=== PATIENT | female | born 1955 | race African-American/Black ===

== ENCOUNTER 2017-04-30 23:46 | Observation (INO) | payer MEDICARE, MEDICAID ==
[~2017-04-30] VITALS: Ht 157.5 cm; Wt 104.3 kg
[~2017-04-30 23:46] MED LIST: BABY ASPIRIN; BUSP-29; DIOVAN; DOCUSATE; PRILOSEC; PROZAC; WELLBUTRIN; ZYPREXA
[2017-05-01] MEDS ORDERED: NITROGLYCERIN OINT 1GM/INCH UDPKT TD STA (00:16)
[2017-05-01 00:42] LABS: BASOPHILS % 0.6 % (0.0-2.0); EOSINOPHILS % 2.6 % (0.0-5.0); HEMATOCRIT. 29.4 % (36.0-48.0); HEMOGLOBIN. 9.7 g/dL (12.0-16.0); LYMPHOCYTES % 35.3 % (20.0-50.0); MEAN CORPUSCULAR HEMOGLOBIN 28.4 pg (28.0-32.0); MEAN CORPUSCULAR VOLUME 85.8 fL (81.0-99.0); MEAN PLATELET VOLUME 9.9 fl (7.4-10.4); MONOCYTES % 8.4 % (2.0-8.0); NEUTROPHILS % 53.1 % (40.0-76.0); PLATELET 162 x1000/uL (130-400); RED BLOOD CELL COUNT 3.43 mill/uL (4.2-5.4); RED CELL DISTRIBUTION WIDTH 15.1 % (11.6-14.6)
[2017-05-01 00:50] LABS: CARBON DIOXIDE 20 mEq/L (21-32); CHLORIDE 113 mEq/L (98-107); TROPONIN I < 0.02 ng/mL (0.00-0.04)
[2017-05-01 03:54] VITALS: BP 111/73
[2017-05-01 04:00] VITALS: BP 111/73
[2017-05-01 08:22] LABS: CREATINE KINASE 151 IU/L (26-192); TROPONIN I < 0.02 ng/mL (0.00-0.04)
[2017-05-01 08:23] LABS: CREATINE KINASE MB FRACTION 1.6 ng/mL (0.5-3.6)
[2017-05-01 08:37] VITALS: BP 125/66
[2017-05-01] MEDS ORDERED: PANTOPRAZOLE 40MG DR TABLET PO SCH (09:15)
[2017-05-01] MEDS ORDERED: ASPIRIN 325MG EC TABLET PO SCH (09:15)
[2017-05-01] MEDS ORDERED: LORAZEPAM 0.5MG TABLET PO PRN (09:15)
[2017-05-01] MEDS ORDERED: ENOXAPARIN 40MG/0.4ML SYR SUBCUT SCH (09:15)
[2017-05-01] MEDS ORDERED: LOSARTAN POTASSIUM 100 MG TABLET PO SCH (09:15)
[2017-05-01] MEDS ORDERED: ACETAMINOPHEN 325MG TABLET PO PRN (09:15)
[2017-05-01] MEDS ORDERED: DEXTROSE 50% WATER 50ML SYRINGE IV PRN (11:15)
[2017-05-01] MEDS ORDERED: BLOOD SUGAR DIAGNOSTIC STRIP TEST SCH (11:45)
[2017-05-01] MEDS ORDERED: INSULIN LISPRO 100 UNITS/ML SUBCUT SCH (12:15)
[2017-05-01 12:18] VITALS: BP 104/70
[2017-05-01 12:45] VITALS: BP 104/70
[2017-05-01] MEDS ORDERED: SODIUM CHLORIDE 0.9% INJ 3ML FLUSH IVF SCH (14:00)
[2017-05-01 14:49] LABS: CLARITY URINE CLEAR (CLEAR); COLOR URINE YELLOW (YELLOW); GLUCOSE URINE 2+ (NEGATIVE); KETONES URINE NEGATIVE (NEGATIVE); LEUKOCYTE ESTERASE URINE TRACE (NEGATIVE); NITRITE URINE NEGATIVE (NEGATIVE); OCCULT BLOOD URINE NEGATIVE (NEGATIVE); PROTEIN URINE NEGATIVE (NEGATIVE); SPECIFIC GRAVITY URINE 1.018 (1.005-1.030); UROBILINOGEN URINE 0.2 E.U./dL (0.2-1.0)
[2017-05-01 15:47] LABS: CREATINE KINASE 142 IU/L (26-192); TROPONIN I < 0.02 ng/mL (0.00-0.04)
[2017-05-01 15:48] LABS: CREATINE KINASE MB FRACTION 0.6 ng/mL (0.5-3.6)
[2017-05-01] MEDS ORDERED: ZOLPIDEM TARTRATE 5MG TABLET PO PRN (21:00)
== END 2017-05-01 15:20 | disposition home or self-care (01) ==
LOC: ER 23:46 → 5WST 05-01 00:37 → INTOOBSV 05-01 00:37 → EDBEDREQ 05-01 00:49 → ENRESERV 05-01 02:08
PROVIDERS: ADMIT Ophthalmology; ATTEND Ophthalmology
DX: R07.2 Precordial pain (principal); E11.9 Type 2 diabetes mellitus without complications; I10 Essential (primary) hypertension; F41.9 Anxiety disorder, unspecified; N17.9 Acute kidney failure, unspecified; Z98.84 Bariatric surgery status
CPT/HCPCS: 36415; 71010; 80053; 81001; 82550; 82553; 82962; 83880; 84484; 85025; 93005; 99285; G0378; J1650

== ENCOUNTER 2017-10-28 17:01 | Emergency (ER) | payer MEDICARE, MEDICAID ==
[~2017-10-28] VITALS: Ht 157.5 cm; Wt 93.0 kg
[2017-10-28] MEDS ORDERED: SODIUM CHLORIDE 0.9% 1,000 ML IV ONE (22:25)
[2017-10-28 22:56] LABS: BASOPHILS % 0.5 % (0.0-2.0); EOSINOPHILS % 2.8 % (0.0-5.0); HEMATOCRIT. 29.6 % (36.0-48.0); HEMOGLOBIN. 9.7 g/dL (12.0-16.0); LYMPHOCYTES % 31.5 % (20.0-50.0); MEAN CORPUSCULAR HEMOGLOBIN 27.9 pg (28.0-32.0); MEAN CORPUSCULAR VOLUME 85.5 fL (81.0-99.0); MEAN PLATELET VOLUME 9.8 fl (7.4-10.4); MONOCYTES % 7.2 % (2.0-8.0); PLATELET 207 x1000/uL (130-400); RED BLOOD CELL COUNT 3.46 mill/uL (4.2-5.4); RED CELL DISTRIBUTION WIDTH 18.4 % (11.6-14.6)
[2017-10-28 23:04] LABS: PROTHROMBIN TIME 10.7 sec (9.4-11.6)
[2017-10-28 23:13] LABS: CHLORIDE 106 mEq/L (98-107)
[2017-10-28 23:50] LABS: CLARITY URINE CLEAR (CLEAR); COLOR URINE YELLOW (YELLOW); KETONES URINE TRACE (NEGATIVE); LEUKOCYTE ESTERASE URINE TRACE (NEGATIVE); NITRITE URINE NEGATIVE (NEGATIVE); OCCULT BLOOD URINE NEGATIVE (NEGATIVE); PROTEIN URINE NEGATIVE (NEGATIVE); SPECIFIC GRAVITY URINE 1.021 (1.005-1.030); UROBILINOGEN URINE 0.2 E.U./dL (0.2-1.0)
[2017-10-29 01:14] VITALS: BP 140/67
== END 2017-10-29 01:21 | disposition home or self-care (01) ==
LOC: ER 18:08
DX: E86.0 Dehydration (principal); N28.9 Disorder of kidney and ureter, unspecified; N30.00 Acute cystitis without hematuria; I10 Essential (primary) hypertension; E11.9 Type 2 diabetes mellitus without complications; Z98.84 Bariatric surgery status; Z88.5 Allergy status to narcotic agent
CPT/HCPCS: 36415; 71045; 80053; 81001; 85025; 85610; 93005; 96360; 96361; 99285; J7030

== ENCOUNTER 2017-11-13 19:49 | Observation (INO) | payer MEDICARE, MEDICAID ==
[~2017-11-13] VITALS: Ht 157.5 cm; Wt 92.1 kg
[2017-11-13 22:14] LABS: EOSINOPHILS % 2.8 % (0.0-5.0); HEMATOCRIT. 30.3 % (36.0-48.0); HEMOGLOBIN. 9.9 g/dL (12.0-16.0); LYMPHOCYTES % 30.5 % (20.0-50.0); MEAN CORPUSCULAR HEMOGLOBIN 27.8 pg (28.0-32.0); MEAN CORPUSCULAR VOLUME 85.2 fL (81.0-99.0); MEAN PLATELET VOLUME 9.9 fl (7.4-10.4); MONOCYTES % 11.8 % (2.0-8.0); NEUTROPHILS % 53.9 % (40.0-76.0); PLATELET 211 x1000/uL (130-400); RED BLOOD CELL COUNT 3.56 mill/uL (4.2-5.4); RED CELL DISTRIBUTION WIDTH 18.7 % (11.6-14.6)
[2017-11-13 22:28] LABS: CHLORIDE 105 mEq/L (98-107); D-DIMER 0.24 mg/L FEU (<0.50); PARTIAL THROMBOPLASTIN TIME 25.8 sec (23.4-31.0); PROTHROMBIN TIME 10.2 sec (9.4-11.6)
[2017-11-13 22:31] LABS: TROPONIN I 0.03 ng/mL (0.00-0.04)
[2017-11-14] VITALS (7 sets, daily range): BP systolic 112–157; BP diastolic 59–82
[2017-11-14] MEDS ORDERED: NITROGLYCERIN 0.4MG TABLET SL SL PRN (03:45)
[2017-11-14] MEDS ORDERED: DEXTROSE 50% WATER 50ML SYRINGE IV PRN (03:45)
[2017-11-14] MEDS ORDERED: METF500T4 PO (03:52)
[2017-11-14] MEDS ORDERED: LOSA1TAB40 PO (03:52)
[2017-11-14] MEDS ORDERED: CYAN100086 PO (03:52)
[2017-11-14] MEDS ORDERED: ASPI-1159 PO (03:52)
[2017-11-14] MEDS ORDERED: OMEP20TA15 PO (03:52)
[2017-11-14] MEDS ORDERED: DOCU-150 PO (03:52)
[2017-11-14] MEDS ORDERED: CLOT15CR2 TP (03:52)
[2017-11-14] MEDS ORDERED: FLUO-124 PO (03:52)
[2017-11-14] MEDS ORDERED: CHOL200074 PO (03:52)
[2017-11-14] MEDS ORDERED: GABA300C PO (03:52)
[2017-11-14] MEDS ORDERED: ARIP20TA2 PO (03:52)
[2017-11-14] MEDS ORDERED: BUPR300T52 PO (03:52)
[2017-11-14] MEDS: INSULIN LISPRO 100 UNITS/ML SUBCUT SCH ×3 (06:08→16:41)
[2017-11-14] MEDS: BLOOD SUGAR DIAGNOSTIC STRIP TEST SCH ×3 (06:08→16:41)
[2017-11-14] MEDS ORDERED: OMEPRAZOLE 20MG CAPSULE EXTENDED RELEASE PO SCH (06:45)
[2017-11-14] MEDS ORDERED: METFORMIN HCL 500MG TABLET PO SCH (07:15)
[2017-11-14 07:30] LABS: CLARITY URINE CLOUDY (CLEAR); COLOR URINE YELLOW (YELLOW); KETONES URINE NEGATIVE (NEGATIVE); LEUKOCYTE ESTERASE URINE 3+ (NEGATIVE); NITRITE URINE NEGATIVE (NEGATIVE); OCCULT BLOOD URINE 1+ (NEGATIVE); PROTEIN URINE NEGATIVE (NEGATIVE); SPECIFIC GRAVITY URINE 1.013 (1.005-1.030); UROBILINOGEN URINE 0.2 E.U./dL (0.2-1.0)
[2017-11-14 07:38] LABS: BASOPHILS % 0.6 % (0.0-2.0); EOSINOPHILS % 2.5 % (0.0-5.0); HEMATOCRIT. 29.6 % (36.0-48.0); HEMOGLOBIN. 9.7 g/dL (12.0-16.0); LYMPHOCYTES % 30.7 % (20.0-50.0); MEAN CORPUSCULAR HEMOGLOBIN 28.1 pg (28.0-32.0); MEAN CORPUSCULAR VOLUME 85.5 fL (81.0-99.0); MEAN PLATELET VOLUME 10.1 fl (7.4-10.4); MONOCYTES % 13.1 % (2.0-8.0); NEUTROPHILS % 53.1 % (40.0-76.0); PLATELET 199 x1000/uL (130-400); RED BLOOD CELL COUNT 3.46 mill/uL (4.2-5.4); RED CELL DISTRIBUTION WIDTH 18.3 % (11.6-14.6)
[2017-11-14 07:43] LABS: CHLORIDE 106 mEq/L (98-107)
[2017-11-14 07:52] LABS: CREATINE KINASE 144 IU/L (26-192); CREATINE KINASE MB FRACTION 1.3 ng/mL (0.5-3.6); HDL CHOLESTEROL 96 mg/dL (40-59); LDL CHOLESTEROL 71 mg/dL (5-100); TROPONIN I < 0.02 ng/mL (0.00-0.04)
[2017-11-14] MEDS ORDERED: MEDICATION NOT ON FORMULARY EA (Omeprazole Magnesium (Prilosec Otc) 1 TAB) PO SCH (09:00)
[2017-11-14] MEDS ORDERED: CYANOCOBALAMIN 1000MCG TABLET PO SCH (09:00)
[2017-11-14] MEDS ORDERED: LOSARTAN POTASSIUM 100 MG TABLET PO SCH (09:00)
[2017-11-14] MEDS ORDERED: CHOLECALCIFEROL (D3) 1000 UNIT TABLET PO SCH (09:00)
[2017-11-14] MEDS ORDERED: CYANOCOBALAMIN 1000 MCG PO SCH (09:00)
[2017-11-14] MEDS ORDERED: BUPROPION HCL 150MG TABLET XL 24HR PO SCH (09:00)
[2017-11-14] MEDS ORDERED: MEDICATION NOT ON FORMULARY EA (Aripiprazole (Abilify) 1 TAB) PO SCH (09:00)
[2017-11-14] MEDS ORDERED: ARIPIPRAZOLE 10MG TABLET PO SCH (09:00)
[2017-11-14] MEDS ORDERED: CHOLECALCIFEROL 2000 UNIT PO SCH (09:00)
[2017-11-14] MEDS ORDERED: MEDICATION NOT ON FORMULARY EA (Bupropion Hcl (Wellbutrin Xl) 1 TAB) PO SCH (09:00)
[2017-11-14] MEDS ORDERED: ASPIRIN 81MG EC TABLET PO SCH (09:00)
[2017-11-14] MEDS ORDERED: HYDROCHLOROTHIAZIDE 12.5MG CAPSULE PO SCH (09:00)
[2017-11-14] MEDS ORDERED: ENOXAPARIN 40MG/0.4ML SYR SUBCUT SCH (09:00)
[2017-11-14] MEDS: GABAPENTIN 300MG CAPSULE PO SCH ×2 (10:24→17:00)
[2017-11-14] MEDS: DOCUSATE SODIUM 100MG CAPSULE PO SCH ×2 (10:25→17:59)
[2017-11-14 16:25] LABS: CREATINE KINASE 172 IU/L (26-192); CREATINE KINASE MB FRACTION 1.3 ng/mL (0.5-3.6); TROPONIN I < 0.02 ng/mL (0.00-0.04)
[2017-11-14] MEDS ORDERED: LEVOFLOXACIN 500MG PREMIX 100 ML IV ONE (17:00)
[2017-11-14] MEDS ORDERED: CLOTRIMAZOLE 1% CREAM 30GM TOP SCH (17:00)
[2017-11-14] MEDS ORDERED: LEVOFLOXACIN 500MG PREMIX 100 ML IV NR (18:30)
== END 2017-11-14 20:28 | disposition home or self-care (01) ==
LOC: ER 20:17 → 5WST 23:35 → INTOOBSV 23:35 → EDBEDREQTM 23:36 → EDBEDREQ 23:36 → ENRESERV 11-14 00:15
PROVIDERS: ADMIT Internal Medicine; ATTEND Internal Medicine
DX: R07.89 Other chest pain (principal); I10 Essential (primary) hypertension; E11.9 Type 2 diabetes mellitus without complications; F31.9 Bipolar disorder, unspecified; F41.9 Anxiety disorder, unspecified; N39.0 Urinary tract infection, site not specified; D64.9 Anemia, unspecified; Z79.899 Other long term (current) drug therapy; Z98.84 Bariatric surgery status
CPT/HCPCS: 36415; 71045; 80048; 80053; 80061; 81003; 82550; 82553; 82962; 83880; 84484; 85025; 85379; 85610; 85730; 87077; 87086; 93005; 93306; 96365; 96372; 99285; G0378; J1650; J1956; J7030